=== PATIENT | male | born 1980 | race Caucasian/White ===

== ENCOUNTER 2016-03-18 12:00 | Outpatient (RCR) | payer OTHER ==
--- OUTSIDE RECORDS SUMMARY | 2016-03-08 18:08 | XMS REPORT | Continuity of Care Document ---
Author Author [facility] Organization [facility] Address Unknown Phone Unavailable Care Team Providers Care School Childcare Attendant Name Role Phone NO, LOCAL PHYSICIAN PCP Unavailable Insurance Providers Payer Name Policy Number Subscriber Name Relationship Self Pay Angel Vargas 19 Self / Same As Patient Advance Directives Directive Response Recorded Date/Time Advance Directives No 03/06/16 4:05am Resuscitation Status Full Code 03/06/16 4:05am Problems No problem information available. Medications Current Home Medications Medication Dose Units Route Directions Days/Qty Instructions Start Date Vancomycin Hcl/D5w 1.25 Gm/250 Ml 1.25 Gm Intraven Every 12 Hours 42 Days 03/06/16 Cefepime Hcl/Dextrose, Iso-Osm 2 Gm/100 Ml 2 Gm Intraven Every 12 Hours 42 Days 03/06/16 Hydrocodone/Acetaminophen 1 Each 1 Each Oral Every 6 Hours 60 03/07/16 Past Home Medications Medication Directions Ordered Status Naproxen 500 Mg Tablet, 1 Each Oral Twice Daily And Prn 02/13/10 Discontinued Hydrocodone Bit/Acetaminophen 1 Ea Tablet, 1 Ea Oral Every 4 Hours 02/13/10 Discontinued Social History Social History Problem Response Recorded Date/Time Alcohol Use Regular Use 03/06/2016 4:05am Recreational Drug Use Yes 03/06/2016 4:05am Recent Foreign Travel No 03/06/2016 4:05am Recent Infectious Disease Exposure No 03/06/2016 4:05am Hospitalization with Isolation Denies 03/07/2016 6:32pm Sexually Transmitted Disease No 03/06/2016 4:05am HIV/AIDS No 03/06/2016 4:05am Smoking Status Current Everyday Smoker 03/06/2016 4:05am Type Used Cigarettes 03/07/2016 6:32pm Drug of Choice MARIJUANA 03/06/2016 4:05am Recent Hopitalizations No 03/06/2016 4:05am Sexually Transmitted Disease No 03/06/2016 4:05am Hospitalization with Isolation Denies 03/07/2016 6:32pm Query Response Start Date Stop Date Smoking Status Current Everyday Smoker Hospital Discharge Instructions Patient Instructions Physician Instructions New, Converted or Re-Newed RX: RX on Chart Goal/Follow Up Appt: Maintain IV antibiotic infusions twice daily until 04/17/16 Patient Instructions: Obtain care from a medical provider to check foot in 2 week Discharge Diet: No Restrictions Activity as Tolerated: Yes Care Plan Patient Instructions:: Obtain care from a medical provider to check foot in 2 week Goal:: Maintain IV antibiotic infusions twice daily until 04/17/16 Plan of Care Discharge Date 03/07/16 2:30pm Disposition 81 HOME-SELF CARE W PLAN READM Instructions/Education Provided Osteomyelitis (GEN) Forms Provided PDI Medical Prescriptions See Medication Section Referrals SUZETTE LEE MD (Unspecified) - Address: [address] [place] [address] Reason(s) for Referral: CALL DR. LEE'S OFFICE WEDNESDAY FOR AN APPOINTMENT FOR 10 DAYS FOR A FOLLOW UP APPOINTMENT. OFFICE # [phone] ( IN [place] ) Additional Instructions/Education Your antibiotics are scheduled for every 12 hours and we estimate it will take about 1 1/2 hours each visit. If discharged on a morning, report to [facility] Emergency Dept according to your 12 hour dose schedule to register as an outpatient. For weekend dosing, you will present to Emergency Dept. For weekday dosing Wednesday-Wednesday, you will present to [facility] the [facility]. FOLLOW PICC LINE CARE PER PICC LINE NURSE INSTRUCTIONS. Care Plan and Goals See Discharge Instructions Section Functional Status Query Response Date Recorded Patient Orientation Person Place Time Situation March 07, 2016 6:32pm Comprehension Ability Understands Concepts March 06, 2016 4:05am Allergies, Adverse Reactions, Alerts Allergen Type Severity Reaction Status Last Updated Tramadol Adverse Reaction Mild NAUSEA Active 02/13/10 DARVOCET Allergy Unknown Active 02/13/10 Immunizations Name Given Type FLU TRIvalent 5 years - Adult 03/06/16 Administered Vital Signs Acute Vital Signs Vital Response Date/Time Temperature (Fahrenheit) 98.0 degrees F (97.6 - 99.5) 03/07/2016 2:30pm Temperature (Calculated Celsius) 35.71139 degrees C (36.4 - 37.5) 03/07/2016 11:55am Temperature Source Tympanic 03/07/2016 2:30pm Pulse Rate (adult) 78 bpm (60 - 90) 03/07/2016 2:30pm Respiratory Rate 16 bpm (12 - 24) 03/07/2016 2:30pm O2 Sat by Pulse Oximetry 98 % (88 - 100) 03/07/2016 2:30pm Blood Pressure 128/78 mm Hg 03/07/2016 2:30pm Blood Pressure Mean 80 mm Hg 03/07/2016 11:55am Pain Numeric Pain Scale 5-Moderate Pain 03/07/2016 2:30pm Height (Feet) 6 feet 03/06/2016 4:05am Height (Inches) 1.00 inches 03/06/2016 4:05am Height (Calculated Centimeters) 185.336985 cm 03/06/2016 4:05am Weight (Pounds) 149 pounds 03/06/2016 4:05am Weight (Ounces) 4.0 oz 03/06/2016 4:05am Weight (Calculated Grams) 84715.66 gm 03/06/2016 4:05am Weight (Calculated Kilograms) 67.665830 kilograms 03/06/2016 4:05am Calculated BMI 19.7 03/06/2016 4:05am Capillary Refill Capillary Refill Less Than 3 Seconds 03/06/2016 8:05pm Results Laboratory Results Test Name Result Units Flags Reference Collection Date/Time Result Date/ Time Comments White Blood Count 5.4 10^3/uL 4.3-11.0 03/07/2016 5:37am 03/07/2016 5: 40am Red Blood Count 4.53 10^6/uL 4.35-5.85 03/07/2016 5:37am 03/07/2016 5: 40am Hemoglobin 12.8 G/DL L 13.3-17.7 03/07/2016 5:37am 03/07/2016 5:40am Hematocrit 39 % L 40-54 03/07/2016 5:37am 03/07/2016 5:40am Mean Corpuscular Volume 86 FL 80-99 03/07/2016 5:37am 03/07/2016 5: 40am Mean Corpuscular Hemoglobin 28 PG 25-34 03/07/2016 5:37am 03/07/2016 5: 40am Mean Corpuscular Hemoglobin Concent 33 G/DL 32-36 03/07/2016 5:37am 5:40am Red Cell Distribution Width 13.0 % 10.0-14.5 03/07/2016 5:37am 2015 5:40am Platelet Count 295 10^3/uL 130-400 03/07/2016 5:37am 03/07/2016 5:40am Mean Platelet Volume 10.0 FL 7.4-10.4 03/07/2016 5:37am 03/07/2016 5: 40am Neutrophils (%) (Auto) 43 % 42-75 03/07/2016 5:37am 03/07/2016 5:40am Lymphocytes (%) (Auto) 42 % 12-44 03/07/2016 5:37am 03/07/2016 5:40am Monocytes (%) (Auto) 11 % 0-12 03/07/2016 5:37am 03/07/2016 5:40am Eosinophils (%) (Auto) 4 % 0-10 03/07/2016 5:37am 03/07/2016 5:40am Basophils (%) (Auto) 0 % 0-10 03/07/2016 5:37am 03/07/2016 5:40am Neutrophils # (Auto) 2.3 X 10^3 1.8-7.8 03/07/2016 5:37am 03/07/2016 5: 40am Lymphocytes # (Auto) 2.3 X 10^3 1.0-4.0 03/07/2016 5:37am 03/07/2016 5: 40am Monocytes # (Auto) 0.6 X 10^3 0.0-1.0 03/07/2016 5:37am 03/07/2016 5: 40am Eosinophils # (Auto) 0.2 10^3/uL 0.0-0.3 03/07/2016 5:37am 03/07/2016 5 :40am Basophils # (Auto) 0.0 10^3/uL 0.0-0.1 03/07/2016 5:37am 03/07/2016 5: 40am Erythrocyte Sedimentation Rate 11 MM/HR 0-15 03/06/2016 2:44am 2015 3:13am Sodium Level 141 MMOL/L 135-145 03/06/2016 2:44am 03/06/2016 3:19am Potassium Level 3.8 MMOL/L 3.6-5.0 03/06/2016 2:44am 03/06/2016 3:19am Chloride Level 103 MMOL/L 98-107 03/06/2016 2:44am 03/06/2016 3:19am Carbon Dioxide Level 28 MMOL/L 21-32 03/06/2016 2:44am 03/06/2016 3: 19am Anion Gap 10 MMOL/L 5-14 03/06/2016 2:44am 03/06/2016 3:19am Blood Urea Nitrogen 22 MG/DL H 7-18 03/06/2016 2:44am 03/06/2016 3:19am Creatinine 0.93 MG/DL 0.60-1.30 03/06/2016 2:44am 03/06/2016 3:19am BUN/Creatinine Ratio 24 03/06/2016 2:44am 03/06/2016 3:19am Estimat Glomerular Filtration Rate > 60 03/06/2016 2:44am 2015 3:19am GFR INTERPRETIVE DATA UNITS FOR ESTIMATED GFR (eGFR): mL/min/1.73 M2 REFERENCE RANGE FOR ESTIMATED GFR (eGFR) eGFR NORMAL eGFR >60 MODERATELY DECREASED eGFR 30-59 SEVERLY DECREASED eGFR 15-29 KIDNEY FAILURE <15 (OR DIALYSIS) Glucose Level 87 MG/DL 70-105 03/06/2016 2:44am 03/06/2016 3:19am Calcium Level 9.9 MG/DL 8.5-10.1 03/06/2016 2:44am 03/06/2016 3:19am C-Reactive Protein High Sensitivity 0.51 MG/DL H 0.00-0.50 03/06/2016 2: 44am 03/06/2016 3:19am Vancomycin Level Trough 6.0 UG/ML L 10.0-20.0 03/07/2016 9:10am 2015 10:54am Microbiology Results Procedure Source Result Collection Date/Time Result Date/Time Blood Culture Peripheral, Iv/Heplock No growth 03/06/2016 2:44am 2015 4:19pm Blood Culture Peripheral, Lt Ac No growth 03/06/2016 2:56am 03/07/2016 4: 19pm Procedures No known history of procedures. Encounters Encounter Location Arrival/Admit Date Discharge/Depart Date Attending Provider Discharged Inpatient [facility] 03/06/16 3:20am 2:30pm SUZETTE LEE MD
[2016-03-08 18:32] VITALS: BP 130/70
[2016-03-08 21:35] VITALS: BP 130/70
--- NOTE | 2016-03-09 12:40 | Physician Query-Final Dx ---
MARILU ALVAREZ 03/09/16 1240: Clinic Account Progress/Dx Physician Query: Please give diagnosis Date of Service Mar 08, 2016 at 18:03 SANTIAGO BARTLETT DO 03/11/16 0756: Clinic Account Progress/Dx DIAGNOSIS: Diagnosis osteomyelitis of the foot MARILU ALVAREZ Mar 09, 2016 12:40 SANTIAGO BARTLETT DO Mar 11, 2016 07:56
[2016-03-09] MEDS: CEFEPIME 2 GM/NS 50 ML IVPB IV SCH ×2 (20:15)
[2016-03-09] MEDS: VANCOMYCIN 1250 MG/NS 250 ML IVPB IV SCH ×2 (20:45)
[2016-03-09 21:54] VITALS: BP 123/64
[2016-03-10] MEDS: CEFEPIME 2 GM/NS 50 ML IVPB IV SCH ×2 (19:21)
[2016-03-10] MEDS: VANCOMYCIN 1250 MG/NS 250 ML IVPB IV SCH ×2 (19:56)
[2016-03-10 21:15] VITALS: BP 120/70
[~2016-03-18] VITALS: Ht 188 cm; Wt 70.3 kg
[~2016-03-18 12:00] MED LIST: CEFE2FRO IV; CEFEPIME 2 GM/NS 50 ML IVPB IV SCH; CEFEPIME HCL 2 GM (MAXIPIME) VIAL ONE; CEFEPIME IV ONE; HYDR-3714 PO; HYDR-3820 PO; NAPR-243 PO; NORMAL SALINE (BAXTER MINI) 100 ML IV ONE; NORMAL SALINE (BAXTER MINI) 50 ML IV ONE; NORMAL SALINE IV ONE; SODIUM CHLORIDE (ADD-VANTAGE) 250 ML ONE; VANC1.254 IV; VANCOMYCIN 1 GM ADD-VANTAGE VIAL IV ONE; VANCOMYCIN 500 MG/VIAL IV ONE; VANCOMYCIN INJECTION 1,250 MG in NS (IVPB) 250 ML IV ONE; VANCOMYCIN INJECTION 1,500 MG in NS IV 500 ML 500 ML IV SCH
[2016-03-18 12:25] VITALS: BP 114/74
== END 2016-06-06 | disposition home or self-care (01) ==
LOC: 4TH RCR 12:00
PROVIDERS: ATTEND Internal Medicine
DX: M86.172 Other acute osteomyelitis, left ankle and foot (principal)
CPT/HCPCS: 96365; 96367

== ENCOUNTER 2016-12-18 03:42 | Emergency (ER) | payer SELFPAY ==
[~2016-12-18] VITALS: Ht 188 cm; Wt 77.1 kg
[~2016-12-18 03:42] MED LIST changes: -CEFEPIME 2 GM/NS 50 ML IVPB IV SCH; -CEFEPIME HCL 2 GM (MAXIPIME) VIAL ONE; -CEFEPIME IV ONE; -NORMAL SALINE (BAXTER MINI) 100 ML IV ONE; -NORMAL SALINE (BAXTER MINI) 50 ML IV ONE; -NORMAL SALINE IV ONE; -SODIUM CHLORIDE (ADD-VANTAGE) 250 ML ONE; -VANCOMYCIN 1 GM ADD-VANTAGE VIAL IV ONE; -VANCOMYCIN 500 MG/VIAL IV ONE; -VANCOMYCIN INJECTION 1,250 MG in NS (IVPB) 250 ML IV ONE; -VANCOMYCIN INJECTION 1,500 MG in NS IV 500 ML 500 ML IV SCH
[2016-12-18] MEDS ORDERED: LIDOCAINE 2% 20 ML (XYLOCAINE) VIAL INJ ONE (04:00)
[2016-12-18] MEDS ORDERED: RX-MUPIROCIN (BACTROBAN) 2% OINT 22 GM TUBE ONE (04:26)
[2016-12-18] MEDS ORDERED: RX-TRIMETH/SULFA. 160-800 MG (BACTRIM DS) TAB PPK#2 PO STA (04:27)
--- NOTE | 2016-12-18 04:31 | ED Integumentary General ---
General Chief Complaint: Foreign Body Stated Complaint: FISHING HOOK IN LEFT INDEX FINGER Nursing Triage Note: PT REPORTS HE WAS FISHING ET CAUGHT HIS FINGER W/ A HOOK Source: patient History of Present Illness Time seen by provider: 03:47 Initial Comments PT ARRIVES VIA POV WAS FISHING FOR CATFISH AND WAS WRESTLING WITH THE FISH AND FISH HOOK BECAME EMBEDDED IN LEFT INDEX FINGER OCCURRED JUST PRIOR TO ARRIVAL PT IS RIGHT HANDED NO PCP Allergies and Home Medications Allergies Coded Allergies: tramadol (Unverified Adverse Reaction, Mild, NAUSEA, 02/13/10) Uncoded Allergies: DARVOCET (Allergy, Unknown, 02/13/10) Home Medications Cefepime HCl/Dextrose, Iso-Osm 2 Gm/100 Ml Froz.piggy, 2 GM IV Q12H for 42 Days Prescribed by: SANTIAGO BARTLETT on 03/06/16 1247 Hydrocodone/Acetaminophen 1 Each Tablet, 1 EACH PO Q6H, #60 Prescribed by: SANTIAGO BARTLETT on 03/07/16 1114 Sulfamethoxazole/Trimethoprim 1 Each Tablet, 1 EACH PO BID, #20 Prescribed by: MARIAM ALBRIGHT on 12/18/16 0435 Vancomycin HCl/D5w 1.25 Gm/250 Ml Plast..bag, 1.25 GM IV Q12H for 42 Days Prescribed by: SANTIAGO BARTLETT on 03/06/16 1247 Constitutional: no symptoms reported Musculoskeletal: see HPI Skin: see HPI Psychiatric/Neurological: No Symptoms Reported, Denies Numbness, Denies Paresthesia, Denies Tingling, Denies Weakness Past Veybixa-Mavpdm-Iiylcr Hx Patient Social History Alcohol Use: Occasionally Uses Recreational Drug Use: Yes Drug of Choice: MARIJUANA Smoking Status: Current Everyday Smoker Type Used: Cigarettes Recent Foreign Travel: No Contact w/Someone Who Travel: No Recent Infectious Disease Expo: No Recent Hopitalizations: No Immunizations Up To Date Tetanus Booster (TDap): Less than 5yrs Seasonal Allergies Seasonal Allergies: No Surgeries HX Surgeries: No Respiratory Hx Respiratory Disorders: No Cardiovascular Hx Cardiac Disorders: No Neurological Hx Neurological Disorders: No Reproductive System Hx Reproductive Disorders: No Sexually Transmitted Disease: No HIV/AIDS: No Genitourinary Hx Genitourinary Disorders: No Gastrointestinal Hx Gastrointestinal Disorders: No Musculoskeletal Hx Musculoskeletal Disorders: Yes (ANKLE, SHOULDER) Musculoskeletal Disorders: Fractures Endocrine Hx Endocrine Disorders: No HEENT HX ENT Disorders: No Cancer Hx Cancer: No Psychosocial Hx Psychiatric Problems: No Integumentary HX Skin/Integumentary Disorder: No Blood Transfusions Hx Blood Disorders: No Family Medical History Family Medial History: Diabetes mellitus PATERNAL GRANDMOTHER FH: congestive heart failure 19 FATHER FH: hepatitis 19 FATHER FH: lung cancer MATERNAL GRANDMOTHER Thyroid disease 19 FATHER Physical Exam Vital Signs Vital Sign - Last 12Hours 12/18/16 03:47 Temp 97.6 Pulse 80 Resp 20 B/P (MAP) 135/93 Pulse Ox 99 O2 Delivery Room Air Capillary Refill : Less Than 3 Seconds General Appearance: other (FILTHY), thin Extremities: other (LEFT INDEX FINGER WITH A VERY LARGE SINGLE DAWSON/SINGLE HOOK FISH HOOK EMBEDDED IN FINGER, NEAR DIP JOINT LATERAL ASPECT. DISTAL MOTOR/ SENSORY/VASCULAR INTACT. ) I&D : Site: LEFT INDEX FINGER Blade Size: 11 I & D Procedure: betadine prep (BETASEPT), sterile drapes applied, sterile dressing applied Progress AREA CLEANSED WITH BETASEPT STERILE DRAPES APPLIED INJECTED WITH 2% LIDOCAINE PLAIN HOOK IS VERY LARGE AND ESSENTIALLY PERPENDICULAR TO BONE, AND UNABLE TO PUSH THROUGH SMALL INCISION MADE IN SKIN AND HOOK REMOVED BY RETRACTING THE HOOK BACK THROUGH INCISION STERILE DRESSING AND BACTROBAN APPLIED PT TOLERATED WELL. Progress/Results/Core Measures Results/Orders My Orders Orders - MARIAM ALBRIGHT DO Lidocaine 2% Injection 20 Ml (Xylocaine (12/18/16 04:00) Rx-Trimeth/Sulfameth Ds Tab (Rx-Bactrim/ (12/18/16 04:27) Mupirocin Ointment (Bactroban Ointment (12/18/16 09:00) Rx-Mupirocin 2% Oint (Rx-Bactroban) (12/18/16 04:32) Rx-Mupirocin 2% Oint (Rx-Bactroban) (12/18/16 04:26) Medications Given in ED Current Medications Medications Dose Ordered Sig/Solo Route Start Time Stop Time Status Last Admin Dose Admin Lidocaine HCl 20 ml ONCE ONCE INJ 12/18/16 04:00 12/18/16 04:01 DC 12/18/16 04:10 20 ML Vital Signs/I&O Vital Sign - Last 12Hours 12/18/16 03:47 Temp 97.6 Pulse 80 Resp 20 B/P (MAP) 135/93 Pulse Ox 99 O2 Delivery Room Air Blood Pressure Mean: 107 Departure Impression Impression: Primary Impression: Fish hook injury of left index finger Disposition: HOME, SELF-CARE Condition: Stable Departure-Patient Inst. Referrals: NO,LOCAL PHYSICIAN (PCP/Family) Primary Care Physician Patient Instructions: Wound Care (DC) Add. Discharge Instructions: SOAK IN WARM SOAPY WATER 2-3 TIMES A DAY, APPLY ANTIBIOTIC OINTMENT AND FRESH DRESSING KEEP WOUND CLEAN AND DRY TYLENOL AND MOTRIN NEEDED FOR PAIN RETURN TO ER IF PROBLEMS All discharge instructions reviewed with patient and/or family. Voiced understanding. Scripts Sulfamethoxazole/Trimethoprim (Bactrim Ds Tablet) 1 Each Tablet 1 EACH PO BID, #20 TAB Prov: MARIAM ALBRIGHT DO 12/18/16 Work/School Note: Work Release Form Date Seen in the Emergency Department: Dec 18, 2016 Return to Work: Dec 19, 2016 Other Restrictions Listed Below: KEEP WOUND CLEAN AND DRY AT ALL TIMES MARIAM ALBRIGHT DO Dec 18, 2016 04:31
[2016-12-18] MEDS ORDERED: RX-MUPIROCIN (BACTROBAN) 2% OINT 22 GM TUBE TOP STA (04:32)
[2016-12-18] MEDS ORDERED: SULF1TAB35 PO (04:35)
[2016-12-18 04:40] VITALS: BP 0/0
[2016-12-18] MEDS ORDERED: MUPIROCIN 2% OINT 22 GM (BACTROBAN) TUBE TOP SCH (09:00)
== END 2016-12-18 04:40 | disposition home or self-care (01) ==
LOC: EDUNIT# 03:42 → ER 03:45
DX: S60.451A Superficial foreign body of left index finger, initial encounter (principal); F12.10 Cannabis abuse, uncomplicated; F17.210 Nicotine dependence, cigarettes, uncomplicated; Z80.1 Family history of malignant neoplasm of trachea, bronchus and lung; Z82.49 Family history of ischemic heart disease and other diseases of the circulatory system; W45.8XXA Other foreign body or object entering through skin, initial encounter